=== PATIENT | male | born 1995 | race African-American/Black ===

== ENCOUNTER 2016-08-26 15:32 | Inpatient (IN) | payer MEDICAID, OTHER ==
[~2016-08-26] VITALS: Ht 190.5 cm; Wt 62.1 kg
[~2016-08-26 15:32] MED LIST: BACT800T5 PO; GENT0.1C TOPICAL; HYDR-3535 PO; TETR500C2 PO; [UNRECOGNIZED DRUG - CODE] TOP
[2016-08-26 15:34] VITALS: BP 88/50; PULSE 104; RESP 20; TEMP 98.2; O2SAT 97
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
[2016-08-26] MEDS ORDERED: CLINDAMYCIN INJ 900 MG in SODIUM CHLORIDE 0.9% INJ 100 ML IV ONE (16:15)
[2016-08-26] MEDS ORDERED: SODIUM CHLOR 0.9% 1000 ML INJ 1,000 ML IV ONE (16:15)
[2016-08-26] MEDS ORDERED: LORazepam 2 MG/ML VIAL IM ONE (16:30)
[2016-08-26 17:24] LABS: AUTOMATED NEUTROPHIL # 4.3 TH/MM3 (1.8-7.7); BASOPHIL % 0.5 % (0.0-2.0); EOSINOPHIL # 0.3 TH/MM3 (0-0.4); EOSINOPHIL % 4.2 % (0.0-4.0); LYMPH % 19.1 % (9.0-44.0); LYMPHOCYTE # 1.3 TH/MM3 (1.0-4.8); MEAN CELL VOLUME 63.3 FL (80.0-100.0); MEAN CORPUSCULAR HEMOGLOBIN 20.1 PG (27.0-34.0); MEAN CORPUSCULAR HGB CONC 31.8 % (32.0-36.0); MONO % 12.4 % (0.0-8.0); NEUT % 63.8 % (16.0-70.0); PLATELET COUNT 269 TH/MM3 (150-450); RED BLOOD COUNT 5.21 MIL/MM3 (4.50-5.90); RED CELL DISTRIBUTION WIDTH 25.8 % (11.6-17.2); WHITE BLOOD COUNT 6.8 TH/MM3 (4.0-11.0)
[2016-08-26 17:28] LABS: HEMO FLAGS AUTO DIFF
[2016-08-26 17:39] LABS: ALT (GPT) 20 U/L (9-52); ANION GAP 5 MEQ/L (5-15); AST (GOT) 14 U/L (15-39); BICARBONATE 31.8 MEQ/L (21.0-32.0); BLOOD UREA NITROGEN 6 MG/DL (7-18); CHLORIDE 105 MEQ/L (98-107); GLOMERULAR FILTRATION RATE 216 ML/MIN (>89); SODIUM (NA) 142 MEQ/L (136-145)
[2016-08-26 17:41] LABS: ALKALINE PHOSPHATASE 212 U/L (45-117); TOTAL BILIRUBIN ADULT 0.3 MG/DL (0.2-1.0)
[2016-08-26 18:00] VITALS: BP 130/73; PULSE 88; RESP 18; O2SAT 100
[2016-08-26 18:00] LABS: PLATELET ESTIMATE SMEAR NORMAL (NORMAL); PLATELET MORPHOLOGY NORMAL (NORMAL); SCAN/DIFF AUTO DIFF CONFIRMED
[2016-08-26] MEDS ORDERED: POTASSIUM CHLORIDE 20 MEQ CONTROLLED RELEASE TAB PO ONE (18:15)
[2016-08-26] MEDS ORDERED: POTASSIUM CHLOR 20 MEQ PREMIX 100 ML IV ONE (18:15)
[2016-08-26] MEDS ORDERED: SLEEPING PILL PO (19:09)
[2016-08-26] MEDS ORDERED: SODIUM CHLOR 0.9% 1000 ML INJ 1,000 ML IV SCH (19:10)
[2016-08-26] MEDS ORDERED: SODIUM CHLORIDE 0.9% FLUSH 5 ML FLUSH FLUSH PRN ×2 (19:15→19:45)
[2016-08-26] MEDS ORDERED: ACETAMINOPHEN 325 MG TAB PO PRN ×2 (19:15→19:45)
--- NOTE | 2016-08-26 19:32 | RADRPT ---
EXAM DATE/TIME: 08/26/2016 17:58 [facility] COMPARISON: No previous studies available for comparison. INDICATIONS : Left Heel, Worsening Chronic Wounds and Inflammation, Possible Cellulitis. Rule out Osteomyelitis. MEDICAL HISTORY : Quadrapelegic. SURGICAL HISTORY : None. ENCOUNTER: Initial ACUITY: 1 week PAIN SCORE: 0/10 LOCATION: Left Heel. FINDINGS: Bones are osteopenic. No discrete bony destructive changes. No acute fracture. Soft tissue ulceration on the heel. CONCLUSION: 1. Bones are osteopenic. No acute fracture identified. No bony destructive changes. Reza Melendez MD on August 26, 2016 at 19:30 Board Certified Radiologist. This report was verified electronically.
[2016-08-26] MEDS ORDERED: ACETAMINOPHEN 325 MG TAB PO ONE (19:45)
[2016-08-26] MEDS ORDERED: ONDANSETRON HCL 4 MG/2 ML VIAL IVP PRN (19:45)
[2016-08-26] MEDS ORDERED: VANCOMYCIN INJ 1,000 MG in SODIUM CHLOR 0.9% 250 ML INJ 250 ML IV ONE (19:45)
[2016-08-26] MEDS ORDERED: Vancomycin Consult Pharmacy 1 EA XX SCH (19:45)
[2016-08-26] MEDS ORDERED: NALOXONE HCL 0.4 MG/ML AMP IV PRN (19:45)
[2016-08-26] MEDS ORDERED: SODIUM CHLORIDE 0.9% FLUSH 5 ML FLUSH FLUSH SCH (21:00)
[2016-08-26] MEDS: SODIUM CHLORIDE 0.9% FLUSH 5 ML FLUSH FLUSH SCH (21:00)
[2016-08-26] MEDS: SODIUM CHLOR 0.9% 1000 ML INJ 1,000 ML IV SCH (21:15)
[2016-08-26 21:16] VITALS: BP 119/73; PULSE 82; RESP 17; O2SAT 100
[2016-08-26] MEDS: ACETAMINOPHEN/HYDROcodone 325 MG/7.5 MG TAB PO PRN (21:17)
[2016-08-26] MEDS: HEPARIN SODIUM - SQ 10,000 UNITS/ML VIAL SQ SCH (22:00)
[2016-08-26 22:39] LABS: BLOOD, URINE MOD (NEG); CALCIUM OXALATE CRYSTALS,URINE MOD /hpf; COMMENT (UR) CULT NOT INDICATED; CULTURE IF INDICATED CULT NOT INDICATED; GLUCOSE,URINE NEG (NEG); KETONE, URINE NEG (NEG); MUCUS URINE FEW /lpf (OCC); NITRITE,URINE NEG (NEG); URINE COLOR YELLOW (YELLW/STRAW)
[2016-08-26] MEDS: VANCOMYCIN INJ 1,500 MG in SODIUM CHLORID 0.9% 500 ML INJ 500 ML IV SCH (22:40)
[2016-08-27] VITALS (7 sets, daily range): BP systolic 105–166; BP diastolic 52–90; PULSE 80–92; RESP 16–18; TEMP 96.9–97.8; O2SAT 99–100
[2016-08-27] MEDS: CLINDAMYCIN INJ 600 MG in SODIUM CHLORIDE 0.9% INJ 100 ML IV SCH ×3 (01:58→15:10)
[2016-08-27] MEDS ORDERED: LORazepam 1 MG TAB PO ONE (02:00)
[2016-08-27] MEDS: VANCOMYCIN INJ 1,500 MG in SODIUM CHLORID 0.9% 500 ML INJ 500 ML IV SCH ×3 (04:00→23:14)
[2016-08-27] MEDS: HEPARIN SODIUM - SQ 10,000 UNITS/ML VIAL SQ SCH ×3 (05:54→21:26)
[2016-08-27] MEDS: SODIUM CHLOR 0.9% 1000 ML INJ 1,000 ML IV SCH ×3 (06:00→21:24)
[2016-08-27 07:45] LABS: AUTOMATED NEUTROPHIL # 3.8 TH/MM3 (1.8-7.7); BASOPHIL % 0.6 % (0.0-2.0); EOSINOPHIL # 0.3 TH/MM3 (0-0.4); EOSINOPHIL % 4.3 % (0.0-4.0); LYMPH % 22.7 % (9.0-44.0); LYMPHOCYTE # 1.4 TH/MM3 (1.0-4.8); MEAN CELL VOLUME 63.8 FL (80.0-100.0); MEAN CORPUSCULAR HEMOGLOBIN 19.9 PG (27.0-34.0); MEAN CORPUSCULAR HGB CONC 31.2 % (32.0-36.0); MONO % 11.1 % (0.0-8.0); NEUT % 61.3 % (16.0-70.0); PLATELET COUNT 249 TH/MM3 (150-450); RED CELL DISTRIBUTION WIDTH 26.1 % (11.6-17.2); WHITE BLOOD COUNT 6.1 TH/MM3 (4.0-11.0)
[2016-08-27 08:00] LABS: HEMO FLAGS AUTO DIFF
[2016-08-27 08:03] LABS: ALT (GPT) 21 U/L (9-52); ANION GAP 5 MEQ/L (5-15); AST (GOT) 19 U/L (15-39); BLOOD UREA NITROGEN 4 MG/DL (7-18); CHLORIDE 111 MEQ/L (98-107); GLOMERULAR FILTRATION RATE 415 ML/MIN (>89); POTASSIUM 3.5 MEQ/L (3.5-5.1); SODIUM (NA) 144 MEQ/L (136-145)
[2016-08-27 08:05] LABS: ALKALINE PHOSPHATASE 197 U/L (45-117); TOTAL BILIRUBIN ADULT 0.3 MG/DL (0.2-1.0)
[2016-08-27] MEDS: SODIUM CHLORIDE 0.9% FLUSH 5 ML FLUSH FLUSH SCH ×2 (08:59→21:26)
[2016-08-27 09:49] LABS: SCAN/DIFF AUTO DIFF CONFIRMED
[2016-08-27] MEDS: ACETAMINOPHEN/HYDROcodone 325 MG/7.5 MG TAB PO PRN (12:07)
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
[2016-08-27] MEDS ORDERED: LORazepam 1 MG TAB PO PRN (22:30)
[2016-08-28] MEDS: CLINDAMYCIN INJ 600 MG in SODIUM CHLORIDE 0.9% INJ 100 ML IV SCH ×5 (01:15→23:00)
[2016-08-28] MEDS: VANCOMYCIN INJ 1,500 MG in SODIUM CHLORID 0.9% 500 ML INJ 500 ML IV SCH ×3 (04:00→23:46)
[2016-08-28] MEDS ORDERED: PHARMACY ORDERED LAB XX ONE ×2 (04:45→19:45)
[2016-08-28] MEDS: HEPARIN SODIUM - SQ 10,000 UNITS/ML VIAL SQ SCH ×3 (05:21→23:45)
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
[2016-08-28] MEDS: SODIUM CHLORIDE 0.9% FLUSH 5 ML FLUSH FLUSH SCH ×2 (09:06→21:00)
[2016-08-28 10:00] VITALS: BP 117/82; PULSE 73; RESP 18; TEMP 97.5; O2SAT 98
[2016-08-28 12:00] VITALS: BP 138/86; PULSE 63; RESP 18; TEMP 97.4; O2SAT 98
[2016-08-28] MEDS: ACETAMINOPHEN/HYDROcodone 325 MG/7.5 MG TAB PO PRN ×3 (14:22→23:46)
[2016-08-28] MEDS: SODIUM CHLOR 0.9% 1000 ML INJ 1,000 ML IV SCH ×2 (14:31→22:00)
[2016-08-28 16:00] VITALS: BP 136/86; PULSE 75; RESP 18; TEMP 97.4; O2SAT 98
[2016-08-28] MEDS ORDERED: SILVER NITR/POTASSIUM NITRATE APPLICATORS TOPICAL PRN (18:30)
[2016-08-28 20:00] VITALS: BP 151/82; PULSE 73; RESP 16; TEMP 96.1; O2SAT 98
[2016-08-28] MEDS: LORazepam 0.5 MG TAB PO PRN (22:53)
[2016-08-29] VITALS: BP 135/80; PULSE 69; RESP 15; TEMP 97.1; O2SAT 100
[2016-08-29 01:43] LABS: AUTOMATED NEUTROPHIL # 2.3 TH/MM3 (1.8-7.7); BASOPHIL % 0.4 % (0.0-2.0); EOSINOPHIL # 0.3 TH/MM3 (0-0.4); HEMATOCRIT 29.5 % (39.0-51.0); LYMPH % 39.3 % (9.0-44.0); MEAN CELL VOLUME 63.5 FL (80.0-100.0); MEAN CORPUSCULAR HGB CONC 31.4 % (32.0-36.0); MONO % 10.2 % (0.0-8.0); NEUT % 45.1 % (16.0-70.0); PLATELET COUNT 257 TH/MM3 (150-450); RED BLOOD COUNT 4.64 MIL/MM3 (4.50-5.90); RED CELL DISTRIBUTION WIDTH 25.5 % (11.6-17.2); WHITE BLOOD COUNT 5.1 TH/MM3 (4.0-11.0)
[2016-08-29 01:44] LABS: HEMO FLAGS AUTO DIFF
[2016-08-29 02:02] LABS: ALKALINE PHOSPHATASE 202 U/L (45-117); ALT (GPT) 27 U/L (9-52); ANION GAP 6 MEQ/L (5-15); AST (GOT) 30 U/L (15-39); BICARBONATE 30.8 MEQ/L (21.0-32.0); BLOOD UREA NITROGEN 2 MG/DL (7-18); CHLORIDE 106 MEQ/L (98-107); GLOMERULAR FILTRATION RATE 276 ML/MIN (>89); POTASSIUM 3.5 MEQ/L (3.5-5.1); SODIUM (NA) 143 MEQ/L (136-145); TOTAL BILIRUBIN ADULT 0.2 MG/DL (0.2-1.0)
[2016-08-29 02:14] LABS: ACANTHOCYTES OCC (NORMAL); KERATOCYTES OCC (NORMAL); OVALOCYTES 1+ (NORMAL)
[2016-08-29 02:17] LABS: PLATELET ESTIMATE SMEAR NORMAL (NORMAL); PLATELET MORPHOLOGY NORMAL (NORMAL); SCAN/DIFF AUTO DIFF CONFIRMED
[2016-08-29] MEDS: VANCOMYCIN INJ 1,500 MG in SODIUM CHLORID 0.9% 500 ML INJ 500 ML IV SCH ×3 (04:00→22:31)
[2016-08-29] MEDS: HEPARIN SODIUM - SQ 10,000 UNITS/ML VIAL SQ SCH ×3 (06:00→22:00)
[2016-08-29] MEDS: SODIUM CHLOR 0.9% 1000 ML INJ 1,000 ML IV SCH ×2 (08:15→18:00)
[2016-08-29] MEDS: CLINDAMYCIN INJ 600 MG in SODIUM CHLORIDE 0.9% INJ 100 ML IV SCH ×3 (08:55→22:31)
[2016-08-29] MEDS: SODIUM CHLORIDE 0.9% FLUSH 5 ML FLUSH FLUSH SCH ×2 (09:00→21:00)
[2016-08-29] MEDS: ACETAMINOPHEN/HYDROcodone 325 MG/7.5 MG TAB PO PRN ×2 (10:44→18:21)
[2016-08-29] MEDS: LORazepam 0.5 MG TAB PO PRN ×2 (10:45→18:21)
[2016-08-29 12:00] VITALS: BP 151/89; PULSE 65; RESP 18; TEMP 97.8; O2SAT 97
[2016-08-29 16:00] VITALS: BP 148/83; PULSE 59; RESP 18; TEMP 98; O2SAT 97
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
[2016-08-29 20:00] VITALS: BP 121/76; PULSE 108; RESP 16; TEMP 97.1; O2SAT 99
[2016-08-30] VITALS: BP 153/80; PULSE 74; RESP 16; TEMP 99.1; O2SAT 100
[2016-08-30] MEDS: SODIUM CHLOR 0.9% 1000 ML INJ 1,000 ML IV SCH ×2 (03:48→21:06)
[2016-08-30] MEDS: VANCOMYCIN INJ 1,500 MG in SODIUM CHLORID 0.9% 500 ML INJ 500 ML IV SCH ×3 (04:00→21:06)
[2016-08-30] MEDS: HEPARIN SODIUM - SQ 10,000 UNITS/ML VIAL SQ SCH ×3 (05:35→21:03)
[2016-08-30] MEDS: CLINDAMYCIN INJ 600 MG in SODIUM CHLORIDE 0.9% INJ 100 ML IV SCH ×2 (06:52→18:16)
[2016-08-30 07:50] VITALS: BP 186/101; PULSE 62; RESP 20; TEMP 96.5; O2SAT 100
[2016-08-30] MEDS: ACETAMINOPHEN/HYDROcodone 325 MG/7.5 MG TAB PO PRN ×3 (10:25→19:14)
[2016-08-30] MEDS: SODIUM CHLORIDE 0.9% FLUSH 5 ML FLUSH FLUSH SCH ×2 (10:26→21:00)
[2016-08-30] MEDS: LORazepam 0.5 MG TAB PO PRN ×2 (10:34→19:15)
[2016-08-30 11:50] VITALS: BP 170/107; PULSE 68; RESP 20; TEMP 96.7; O2SAT 100
[2016-08-30 15:50] VITALS: PULSE 90; RESP 20; TEMP 97.6; O2SAT 98
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
[2016-08-30 21:25] VITALS: BP 116/69; PULSE 102; RESP 16; TEMP 96.6; O2SAT 96
[2016-08-31] VITALS: BP 136/82; PULSE 87; RESP 15; TEMP 97.6; O2SAT 100
[2016-08-31] MEDS: CLINDAMYCIN INJ 600 MG in SODIUM CHLORIDE 0.9% INJ 100 ML IV SCH ×2 (00:10→18:23)
[2016-08-31] MEDS: ACETAMINOPHEN/HYDROcodone 325 MG/7.5 MG TAB PO PRN ×2 (00:11→19:43)
[2016-08-31] MEDS: LORazepam 0.5 MG TAB PO PRN ×3 (01:30→19:49)
[2016-08-31] MEDS: VANCOMYCIN INJ 1,500 MG in SODIUM CHLORID 0.9% 500 ML INJ 500 ML IV SCH ×3 (04:00→21:38)
[2016-08-31] MEDS: HEPARIN SODIUM - SQ 10,000 UNITS/ML VIAL SQ SCH ×3 (04:52→21:39)
[2016-08-31 05:15] VITALS: BP 116/63; PULSE 98; RESP 14; TEMP 98.7; O2SAT 100
--- NOTE | 2016-08-31 07:30 | PD.AMA ---
Against Medical Advice Note AMA Statement Patient Jhonathan Abbott has decided to leave the hospital against medical advice. This patient has the capacity to refuse care and understands the risks of leaving, including permanent disability and/or , and has had an opportunity to ask questions about his condition. The patient has been informed that he may return for care at any time, and follow up has been arranged/ advised. Doc Weeks MD Aug 31, 2016 07:30
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
[2016-08-31 10:53] VITALS: BP 151/100; PULSE 82; RESP 16; TEMP 96.6; O2SAT 100
[2016-08-31] MEDS: SODIUM CHLORIDE 0.9% FLUSH 5 ML FLUSH FLUSH SCH ×2 (10:53→21:00)
[2016-08-31 15:50] VITALS: BP 116/68; PULSE 101; RESP 20; TEMP 95.1
[2016-08-31] MEDS: SODIUM CHLOR 0.9% 1000 ML INJ 1,000 ML IV SCH ×2 (16:43→19:46)
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
[2016-08-31 20:00] VITALS: BP 138/76; PULSE 101; RESP 16; TEMP 96.3; O2SAT 100
[2016-08-31] MEDS: MORPHINE SULFATE 4 MG/ML INJ IV PUSH PRN (21:37)
[2016-09-01] MEDS: CLINDAMYCIN INJ 600 MG in SODIUM CHLORIDE 0.9% INJ 100 ML IV SCH (00:21)
[2016-09-01] MEDS: VANCOMYCIN INJ 1,500 MG in SODIUM CHLORID 0.9% 500 ML INJ 500 ML IV SCH ×2 (04:33→13:45)
[2016-09-01 04:44] VITALS: BP 122/77; PULSE 77; RESP 16; TEMP 97.8; O2SAT 98
[2016-09-01] MEDS: HEPARIN SODIUM - SQ 10,000 UNITS/ML VIAL SQ SCH ×3 (05:30→21:11)
[2016-09-01 10:52] VITALS: BP 129/88; PULSE 71; RESP 16; TEMP 97.8; O2SAT 99
[2016-09-01] MEDS: SODIUM CHLORIDE 0.9% FLUSH 5 ML FLUSH FLUSH SCH ×2 (10:56→21:00)
[2016-09-01 12:00] VITALS: BP 138/80; PULSE 70; RESP 20; TEMP 96.2; O2SAT 100
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
[2016-09-01] MEDS: ACETAMINOPHEN/HYDROcodone 325 MG/7.5 MG TAB PO PRN ×2 (16:56→21:11)
[2016-09-01] MEDS: SODIUM CHLOR 0.9% 1000 ML INJ 1,000 ML IV SCH (16:58)
[2016-09-01 17:40] VITALS: BP 127/62; PULSE 72; RESP 16; TEMP 96.8; O2SAT 100
[2016-09-01 20:00] VITALS: BP 119/71; PULSE 81; RESP 17; TEMP 97; O2SAT 100
[2016-09-01] MEDS: MORPHINE SULFATE 4 MG/ML INJ IV PUSH PRN (23:31)
[2016-09-01] MEDS: LORazepam 0.5 MG TAB PO PRN (23:32)
[2016-09-02] VITALS: BP 123/90; PULSE 89; RESP 16; TEMP 97.1; O2SAT 100
[2016-09-02] MEDS: SODIUM CHLOR 0.9% 1000 ML INJ 1,000 ML IV SCH ×3 (03:00→20:02)
[2016-09-02] MEDS: HEPARIN SODIUM - SQ 10,000 UNITS/ML VIAL SQ SCH ×3 (04:54→22:00)
[2016-09-02 08:00] VITALS: BP 128/78; PULSE 90; RESP 20; TEMP 98.7; O2SAT 98
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
[2016-09-02] MEDS: SODIUM CHLORIDE 0.9% FLUSH 5 ML FLUSH FLUSH SCH ×2 (09:00→20:01)
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
[2016-09-02] MEDS: ACETAMINOPHEN/HYDROcodone 325 MG/7.5 MG TAB PO PRN ×2 (12:49→20:09)
[2016-09-02] MEDS ORDERED: SILV1MIS21 TOPICAL (14:33)
--- NOTE | 2016-09-02 14:35 | HHI.FF ---
Face to Face Verification Diagnosis: (1) Cellulitis of left heel (2) Chronic ulcer of sacral region Physical Therapy Order: Evaluate and Treat, Improve ambulation, Strength and gait training Occupational Therapy Order: Evaluate and Treat, Gross motor coordination, Fine motor coordination Home Health Nursing Order: Medical education Home Health Aide Order: To Assist In: Bathing and personal care, health economist and meal prep Brake Operator Order: To Evaluate: Living conditions/environment I have seen patient Jhonathan Abbott on 09/02/16. My clinical findings support the need for the requested home health care services because: Ltd mobility - disease progression Deconditioned w/ increased weakness Limited ability to care for self Infection w/ risk of complications I certify that my clinical findings support that this patient is homebound because: Unsafe to leave home unassisted [id number] bed/chair Unable to use public transportation need wound care Doc Weeks MD Sep 02, 2016 14:35
[2016-09-02 16:00] VITALS: BP 122/74; PULSE 84; RESP 16; TEMP 96; O2SAT 94
[2016-09-02 20:00] VITALS: BP 128/68; PULSE 73; RESP 17; TEMP 98.4; O2SAT 99
[2016-09-02] MEDS: LORazepam 0.5 MG TAB PO PRN (21:53)
[2016-09-03] VITALS: BP 130/60; PULSE 70; RESP 18; TEMP 98.1; O2SAT 99
[2016-09-03] MEDS: ACETAMINOPHEN/HYDROcodone 325 MG/7.5 MG TAB PO PRN ×2 (00:12→21:38)
[2016-09-03 04:00] VITALS: BP 118/80; PULSE 81; RESP 18; TEMP 98.9; O2SAT 100
[2016-09-03] MEDS: HEPARIN SODIUM - SQ 10,000 UNITS/ML VIAL SQ SCH ×3 (04:58→22:00)
[2016-09-03] MEDS: SODIUM CHLOR 0.9% 1000 ML INJ 1,000 ML IV SCH ×2 (08:00→15:22)
[2016-09-03] MEDS: SODIUM CHLORIDE 0.9% FLUSH 5 ML FLUSH FLUSH SCH ×2 (09:00→21:00)
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
[2016-09-03 20:00] VITALS: BP 132/64; PULSE 76; RESP 17; TEMP 97.1; O2SAT 100
[2016-09-03] MEDS: LORazepam 0.5 MG TAB PO PRN (21:38)
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
[2016-09-04] VITALS: BP 130/61; PULSE 69; RESP 18; TEMP 98; O2SAT 100
[2016-09-04 02:00] VITALS: BP 100/76; PULSE 76; RESP 18; TEMP 97; O2SAT 100
[2016-09-04 04:00] VITALS: BP 124/58; PULSE 76; RESP 19; TEMP 96.1; O2SAT 99
[2016-09-04] MEDS: SODIUM CHLOR 0.9% 1000 ML INJ 1,000 ML IV SCH ×2 (04:00→13:25)
[2016-09-04] MEDS: HEPARIN SODIUM - SQ 10,000 UNITS/ML VIAL SQ SCH ×3 (06:00→22:00)
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
[2016-09-04] MEDS: SODIUM CHLORIDE 0.9% FLUSH 5 ML FLUSH FLUSH SCH ×2 (09:00→21:00)
[2016-09-04] MEDS: ACETAMINOPHEN/HYDROcodone 325 MG/7.5 MG TAB PO PRN (18:32)
[2016-09-04] MEDS: LORazepam 0.5 MG TAB PO PRN (18:38)
[2016-09-04] MEDS ORDERED: ACETAMINOPHEN 325 MG TAB PO PRN (23:00)
[2016-09-05] VITALS: BP 110/80; PULSE 77; RESP 18; TEMP 97.7; O2SAT 100
[2016-09-05] MEDS: SODIUM CHLOR 0.9% 1000 ML INJ 1,000 ML IV SCH ×2 (01:08→21:00)
[2016-09-05] MEDS: HEPARIN SODIUM - SQ 10,000 UNITS/ML VIAL SQ SCH ×3 (06:29→22:00)
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
[2016-09-05] MEDS: SODIUM CHLORIDE 0.9% FLUSH 5 ML FLUSH FLUSH SCH ×2 (09:32→21:00)
[2016-09-05 12:45] VITALS: BP 108/69; PULSE 73; RESP 20; TEMP 97.5; O2SAT 99
[2016-09-05] MEDS: ACETAMINOPHEN/HYDROcodone 325 MG/7.5 MG TAB PO PRN (18:27)
[2016-09-05 20:00] VITALS: BP 92/53; PULSE 79; RESP 18; TEMP 98.3; O2SAT 100
[2016-09-05] MEDS: LORazepam 0.5 MG TAB PO PRN (22:04)
[2016-09-06] VITALS: BP 105/67; PULSE 75; RESP 18; TEMP 98; O2SAT 99
[2016-09-06 04:00] VITALS: BP 95/74; PULSE 75; RESP 18; TEMP 97; O2SAT 99
[2016-09-06] MEDS: SODIUM CHLOR 0.9% 1000 ML INJ 1,000 ML IV SCH ×3 (06:00→16:00)
[2016-09-06] MEDS: HEPARIN SODIUM - SQ 10,000 UNITS/ML VIAL SQ SCH ×3 (06:00→20:30)
[2016-09-06 07:50] VITALS: RESP 20
[2016-09-06] MEDS: SODIUM CHLORIDE 0.9% FLUSH 5 ML FLUSH FLUSH SCH ×2 (07:57→20:29)
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
[2016-09-06 11:50] VITALS: BP 107/71; PULSE 74; RESP 20; TEMP 98.6; O2SAT 100
[2016-09-06] MEDS: LORazepam 0.5 MG TAB PO PRN ×2 (14:51→21:59)
[2016-09-06 15:14] LABS: AUTOMATED NEUTROPHIL # 3.9 TH/MM3 (1.8-7.7); BASOPHIL # 0.1 TH/MM3 (0-0.2); BASOPHIL % 0.9 % (0.0-2.0); EOSINOPHIL # 0.2 TH/MM3 (0-0.4); EOSINOPHIL % 3.1 % (0.0-4.0); HEMATOCRIT 39.4 % (39.0-51.0); LYMPH % 21.4 % (9.0-44.0); LYMPHOCYTE # 1.3 TH/MM3 (1.0-4.8); MEAN CELL VOLUME 66.3 FL (80.0-100.0); MEAN CORPUSCULAR HEMOGLOBIN 20.5 PG (27.0-34.0); MEAN CORPUSCULAR HGB CONC 30.9 % (32.0-36.0); MONO % 9.1 % (0.0-8.0); NEUT % 65.5 % (16.0-70.0); PLATELET COUNT 310 TH/MM3 (150-450); RED BLOOD COUNT 5.94 MIL/MM3 (4.50-5.90); RED CELL DISTRIBUTION WIDTH 25.7 % (11.6-17.2)
[2016-09-06 15:19] LABS: HEMO FLAGS AUTO DIFF
[2016-09-06 15:43] LABS: BICARBONATE 29.7 MEQ/L (21.0-32.0); POTASSIUM 3.8 MEQ/L (3.5-5.1); TOTAL BILIRUBIN ADULT 0.4 MG/DL (0.2-1.0)
[2016-09-06 15:50] VITALS: BP 108/74; PULSE 85; RESP 20; TEMP 97.9; O2SAT 100
[2016-09-06 15:52] LABS: CALCIUM-PROTEIN CORRECTED 11.7 MG/DL (8.5-10.1)
[2016-09-06 16:33] LABS: OVALOCYTES 1+ (NORMAL); TARGET CELLS 1+ (NORMAL)
[2016-09-06 16:34] LABS: SCAN/DIFF AUTO DIFF CONFIRMED
[2016-09-06 20:00] VITALS: BP 113/70; PULSE 79; RESP 16; TEMP 99; O2SAT 99
[2016-09-06] MEDS: ACETAMINOPHEN/HYDROcodone 325 MG/7.5 MG TAB PO PRN (21:59)
[2016-09-07] VITALS: BP 100/69; PULSE 92; RESP 20; TEMP 97; O2SAT 100
[2016-09-07] MEDS: SODIUM CHLOR 0.9% 1000 ML INJ 1,000 ML IV SCH ×3 (01:59→21:39)
[2016-09-07] MEDS: HEPARIN SODIUM - SQ 10,000 UNITS/ML VIAL SQ SCH ×3 (04:45→21:40)
[2016-09-07 07:50] VITALS: RESP 20
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
[2016-09-07] MEDS: SODIUM CHLORIDE 0.9% FLUSH 5 ML FLUSH FLUSH SCH ×2 (09:00→21:00)
[2016-09-07 11:50] VITALS: BP 123/81; PULSE 81; RESP 20; TEMP 98.9; O2SAT 98
[2016-09-07 15:50] VITALS: BP 109/80; PULSE 86; RESP 20; TEMP 97.8; O2SAT 100
[2016-09-07] MEDS: LORazepam 0.5 MG TAB PO PRN (18:18)
[2016-09-07 20:00] VITALS: BP 111/81; PULSE 112; RESP 16; TEMP 97.1; O2SAT 97
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
[2016-09-08 00:32] VITALS: BP 131/85
[2016-09-08] MEDS: LORazepam 0.5 MG TAB PO PRN ×3 (00:35→20:57)
[2016-09-08] MEDS: ACETAMINOPHEN/HYDROcodone 325 MG/7.5 MG TAB PO PRN ×2 (00:35→20:57)
[2016-09-08] MEDS: HEPARIN SODIUM - SQ 10,000 UNITS/ML VIAL SQ SCH ×3 (04:36→21:49)
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
[2016-09-08] MEDS: SODIUM CHLOR 0.9% 1000 ML INJ 1,000 ML IV SCH ×2 (08:00→18:00)
[2016-09-08 08:45] VITALS: BP 115/81; PULSE 91; RESP 20; TEMP 98.9; O2SAT 100
[2016-09-08] MEDS: SODIUM CHLORIDE 0.9% FLUSH 5 ML FLUSH FLUSH SCH ×2 (09:00→20:58)
[2016-09-08 14:33] LABS: AUTOMATED NEUTROPHIL # 3.6 TH/MM3 (1.8-7.7); BASOPHIL % 0.6 % (0.0-2.0); EOSINOPHIL # 0.3 TH/MM3 (0-0.4); HEMATOCRIT 41.1 % (39.0-51.0); LYMPH % 24.3 % (9.0-44.0); LYMPHOCYTE # 1.5 TH/MM3 (1.0-4.8); MEAN CELL VOLUME 66.8 FL (80.0-100.0); MEAN CORPUSCULAR HEMOGLOBIN 20.7 PG (27.0-34.0); MEAN CORPUSCULAR HGB CONC 30.9 % (32.0-36.0); MONO % 13.4 % (0.0-8.0); NEUT % 57.7 % (16.0-70.0); PLATELET COUNT 331 TH/MM3 (150-450); RED BLOOD COUNT 6.15 MIL/MM3 (4.50-5.90); RED CELL DISTRIBUTION WIDTH 24.8 % (11.6-17.2); WHITE BLOOD COUNT 6.3 TH/MM3 (4.0-11.0)
[2016-09-08 14:36] LABS: HEMO FLAGS AUTO DIFF
[2016-09-08 14:57] LABS: BICARBONATE 31.1 MEQ/L (21.0-32.0); POTASSIUM 4.4 MEQ/L (3.5-5.1); TOTAL BILIRUBIN ADULT 0.5 MG/DL (0.2-1.0)
[2016-09-08 15:00] LABS: CALCIUM-PROTEIN CORRECTED 12.9 MG/DL (8.5-10.1)
[2016-09-08 15:25] LABS: OVALOCYTES 1+ (NORMAL); SCAN/DIFF AUTO DIFF CONFIRMED; TARGET CELLS 1+ (NORMAL)
[2016-09-08 20:00] VITALS: BP 117/78; PULSE 86; RESP 17; TEMP 97.1; O2SAT 100
[2016-09-09] VITALS: BP 128/85; PULSE 80; RESP 17; TEMP 97; O2SAT 99
[2016-09-09] MEDS: SODIUM CHLOR 0.9% 1000 ML INJ 1,000 ML IV SCH ×3 (04:00→22:48)
[2016-09-09] MEDS: HEPARIN SODIUM - SQ 10,000 UNITS/ML VIAL SQ SCH ×3 (06:00→22:38)
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
[2016-09-09] MEDS: SODIUM CHLORIDE 0.9% FLUSH 5 ML FLUSH FLUSH SCH ×2 (09:00→22:39)
[2016-09-09 16:00] VITALS: BP 122/74; PULSE 67; RESP 16; TEMP 97; O2SAT 100
[2016-09-09 20:00] VITALS: BP 134/68; PULSE 76; RESP 18; TEMP 97.5; O2SAT 98
[2016-09-09] MEDS: LORazepam 0.5 MG TAB PO PRN (22:42)
[2016-09-09] MEDS: ACETAMINOPHEN/HYDROcodone 325 MG/7.5 MG TAB PO PRN (22:43)
[2016-09-10 00:22] VITALS: BP 102/72; PULSE 85; RESP 18; TEMP 97.4; O2SAT 100
[2016-09-10 04:00] VITALS: BP 106/100; PULSE 82; RESP 18; TEMP 97.2; O2SAT 98
[2016-09-10] MEDS: HEPARIN SODIUM - SQ 10,000 UNITS/ML VIAL SQ SCH (05:34)
[2016-09-10 08:00] VITALS: BP 102/54; PULSE 87; RESP 16; TEMP 98.4; O2SAT 99
[2016-09-10] MEDS: SODIUM CHLORIDE 0.9% FLUSH 5 ML FLUSH FLUSH SCH (09:00)
[2016-09-10] MEDS: SODIUM CHLOR 0.9% 1000 ML INJ 1,000 ML IV SCH (09:52)
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
== END 2016-09-10 13:57 | disposition home or self-care (01) | DRG 602 ==
LOC: NEPA 15:32 → NEDA 18:52 → OBSVTOIN 19:40 → HOCB 08-27 00:49
PROVIDERS: ADMIT Family Medicine; ATTEND Family Medicine
PROC: 0H9MXZZ Drainage of Right Foot Skin, External Approach (ICD-10-PCS; principal; 2016-08-27)
PROC: 0HBRXZZ Excision of Toe Nail, External Approach (ICD-10-PCS; 2016-08-27)
DX: L02.611 Cutaneous abscess of right foot (principal); G82.50 Quadriplegia, unspecified; L89.153 Pressure ulcer of sacral region, stage 3; I95.9 Hypotension, unspecified; L89.313 Pressure ulcer of right buttock, stage 3; G62.9 Polyneuropathy, unspecified; L89.619 Pressure ulcer of right heel, unspecified stage; L89.629 Pressure ulcer of left heel, unspecified stage; R00.0 Tachycardia, unspecified; E87.6 Hypokalemia; F32.9 Major depressive disorder, single episode, unspecified; F41.9 Anxiety disorder, unspecified; Z99.3 Dependence on wheelchair; D64.9 Anemia, unspecified; Z22.322 Carrier or suspected carrier of Methicillin resistant Staphylococcus aureus; Z93.3 Colostomy status; Z91.011 Allergy to milk products; Z91.19 Patient's noncompliance with other medical treatment and regimen
CPT/HCPCS: 73650; 80053; 80202; 81001; 83605; 85025; 85652; 86140; 86403; 87040; 87070; 87147; 87186; 87205; 96361; 96365; 96372; 96375; J0690; J1644; J2060; J2270; J3370; J3480; J7030; J7040

== ENCOUNTER 2016-10-07 01:35 | Emergency (ER) | payer MEDICARE, OTHER ==
[~2016-10-07] VITALS: Ht 190.5 cm; Wt 60.0 kg
[~2016-10-07 01:35] MED LIST changes: -BACT800T5 PO; +SILV1MIS21 TOPICAL; +SLEEPING PILL PO; -TETR500C2 PO
[2016-10-07 01:47] VITALS: BP 99/64; PULSE 94; RESP 16; TEMP 98.6; O2SAT 98
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
--- NOTE | 2016-10-07 03:03 | RADRPT ---
EXAM DATE/TIME: 10/07/2016 02:26 [facility] COMPARISON: No previous studies available for comparison. INDICATIONS : Ulcer bottom of foot. MEDICAL HISTORY : None. SURGICAL HISTORY : None. ENCOUNTER: Initial ACUITY: 3 days PAIN SCORE: 5/10 LOCATION: Right lateral FINDINGS: Three view examination of the right foot demonstrates no soft tissue swelling, dislocation, or fractu re. The tarsal bones appear intact. The interphalangeal and metatarsophalangeal joints are intact. The calcaneus is intact. Bony mineralization is globally reduced. No cortical destruction or lucen cy. CONCLUSION: 1. Osteopenia. 2. No cortical destruction observed to suggest osteomyelitis. Vic Butler Jr., MD on October 07, 2016 at 3:00 Board Certified Radiologist. This report was verified electronically.
[2016-10-07] MEDS ORDERED: SULFAMETHOXAZOLE-TRIMETHOPRIM DS 800-160 MG TAB PO ONE (03:30)
[2016-10-07] MEDS ORDERED: BACT800T5 PO (03:33)
[2016-10-07] MEDS ORDERED: SILV1MIS21 TOPICAL (03:33)
[2016-10-07] MEDS ORDERED: CLIN1CAP5 PO (03:33)
== END 2016-10-07 05:20 | disposition home or self-care (01) ==
LOC: NEPE 01:35
DX: L03.115 Cellulitis of right lower limb (principal); G82.20 Paraplegia, unspecified; L97.412 Non-pressure chronic ulcer of right heel and midfoot with fat layer exposed; B95.62 Methicillin resistant Staphylococcus aureus infection as the cause of diseases classified elsewhere; Z99.3 Dependence on wheelchair
CPT/HCPCS: 73630; 86403; 87070; 87186; 99284